=== PATIENT | female | born 1955 | race Caucasian/White ===

== ENCOUNTER 2018-02-20 08:04 | Day surgery (SDC) | payer OTHER, MEDICAID ==
[2018-02-20] MEDS ORDERED: LIDOCAINE 1% 2 ML INJ ID PRN (08:22)
[2018-02-20] MEDS ORDERED: LR 1,000 ML IV ONE (08:22)
--- NOTE | 2018-02-20 08:40 | PDANEPAE ---
ANE History of Present Illness Colonoscopy ANE Past Medical History - Cardiovascular History Hx Hypertension: No Hx Arrhythmias: No Hx Chest Pain: No Hx Coronary Artery / Peripheral Vascular Disease: No Hx CHF / Valvular Disease: No Hx Palpitations: No Cardiovascular History Comment: hyperlipidemia - Pulmonary History Hx COPD: No Hx Asthma/Reactive Airway Disease: Yes Hx Recent Upper Respiratory Infection: No Hx Oxygen in Use at Home: No Hx Sleep Apnea: Yes Sleep Apnea Screening Result - Last Documented: Positive Pulmonary History Comment: uses inhaler about 2x/month. hx of sleep apnea, dx about 10 years go, unable to tolerate CPAP - Neurologic History Hx Cerebrovascular Accident: No Hx Seizures: No Hx Dementia: No - Endocrine History Hx Diabetes: No Hypothyroid: No Hyperthyroid: No Obesity: severe - Renal History Hx Renal Disorders: No - Liver History Hx Hepatic Disorders: No - Neurological & Psychiatric Hx Hx Neurological and Psychiatric Disorders: Yes Neurological / Psychiatric History Comment: fibromyalgia, depression - Cancer History Hx Cancer: No - Congenital Disorder History Hx Congenital Disorders: No - GI History GERD: moderate Hx Gastrointestinal Disorders: Yes Gastrointestinal History Comment: reflux uses tums - Other Health History Other Health History: none - Chronic Pain History Chronic Pain: Yes (fibromyalgia,back pain, neck pain, on chronic opioids for 30 years) - Surgical History Prior Surgeries: back surgery 01/03 ANE Review of Systems Review of Systems: - Exercise capacity METS (RN): 3 METS ANE Patient History - Allergies Allergies/Adverse Reactions: sertraline [From Zoloft] Allergy (Verified 02/20/18 09:00) - Home Medications Home Medications: Aspirin 02/07/18 [Last Taken Unknown] Cholecalciferol (Vitamin D3) 02/07/18 [Last Taken Unknown] Desvenlafaxine Succinate 02/07/18 [Last Taken Unknown] Herbals/Supplements -Info Only 02/07/18 [Last Taken Unknown] MORPHINE SULFATE 02/07/18 [Last Taken Unknown] Percocet 10-325 mg Tablet 02/07/18 [Last Taken Unknown] Simvastatin 02/07/18 [Last Taken Unknown] Valium 5 MG (*) 02/07/18 [Last Taken Unknown] Vitamin B-12 02/07/18 [Last Taken Unknown] - Anes Hx Anes Hx: no prior problems - Smoking Hx Smoking Status: Former smoker (Stopped 30 years) - Family Anes Hx Family Anes Hx: none Family Hx Anesthesia Complications: none ANE Labs/Vital Signs - Vital Signs Height: 157.48 cm Weight: 108.862 kg ANE Physical Exam - Airway Neck exam: decreased ROM (Decreased extension) Mallampati Score: Class 2 Mouth exam: normal dental/mouth exam (full upper caps) - Pulmonary Pulmonary: clear to auscultation - Cardiovascular Cardiovascular: regular rate and rhythym - ASA Status ASA Status: III ANE Anesthesia Plan Anesthesia Plan: GA with mask
[2018-02-20] MEDS ORDERED: MIDAZOLAM 2 MG/2 ML VIAL IVP ONE (08:48)
[2018-02-20] MEDS ORDERED: fentaNYL 100 MCG/2 ML INJ ONE (09:02)
[2018-02-20] MEDS ORDERED: PROPOFOL 200 MG/20 ML VIAL ONE ×2 (09:02)
--- NOTE | 2018-02-20 09:12 | PDGENHP ---
History & Physical Chief Complaint: Fhx of colon cancer, difficulty to sedate with conscious sedation. History of Present Illness: Fhx of colon cancer her for screening colonoscopy. Hx of COPD/DAE. Pertinent Past, Social, Family History: None Relevant Physical Exam: AVSS. Lungs: Decreased BS. COR: RRR, NS1, S2. ABD: + BS, obese -HSM, NT. Neurol: Alert, OX3, No focal deficits. Cardiorespiratory Assessment: See above.
[2018-02-20] MEDS ORDERED: ONDANSETRON 4 MG/2 ML VIAL ONE ×2 (09:13→09:58)
[2018-02-20] MEDS ORDERED: MIDAZOLAM 2 MG/2 ML VIAL ONE (09:16)
[2018-02-20] MEDS ORDERED: ONDANSETRON 4 MG/2 ML VIAL IVP PRN (09:32)
[2018-02-20] MEDS ORDERED: fentaNYL 100 MCG/2 ML INJ IVP PRN (09:32)
[2018-02-20] MEDS ORDERED: ALBUTEROL 3 ML DEYVIAL IH PRN (09:32)
[2018-02-20] MEDS ORDERED: NALOXONE HCL 0.4 MG/ML INJ IVP PRN (09:32)
--- NOTE | 2018-02-20 09:59 | GIREPORT ---
[facility] - Endoscopy Department Patient Name: Hien Angeles Procedure Date: 02/20/2018 9:00 AM Patient Type: Outpatient Attending MD/ ER Physician: Benjamin Patterson MD Procedure: Colonoscopy Indications: Screening for colorectal malignant neoplasm, Family history of colon ca ncer in a first-degree relative Providers: Benjamin Patterson MD Referring MD: Jesica Bowser PA-C Medicines: General Anesthesia Complications: No immediate complications. Description of Procedure: After obtaining informed consent, the scope was passed under direct vis ion. Throughout the procedure, the patient's blood pressure, pulse, and oxyg en saturations were monitored continuously. The Colonoscope was introduced through the anus and advanced to the terminal ileum. The colonoscopy wa s performed without difficulty. The patient tolerated the procedure well. The quality of the bowel preparation was good. Findings: The terminal ileum appeared normal. The cecum, appendiceal orifice and ileocecal valve appeared normal. Two sessile polyps were found in the proximal ascending colon. The poly ps were 4 mm in size. These polyps were removed with a cold biopsy forceps . Resection and retrieval were complete. The rectum, sigmoid colon, descending colon and transverse colon appear ed normal. The perianal and digital rectal examinations were normal. Estimated Blood Loss: Estimated blood loss: none. Post Op Diagnosis: - The examined portion of the ileum was normal. - The cecum, appendiceal orifice and ileocecal valve are normal. - Two 4 mm polyps in the proximal ascending colon, removed with a cold biopsy forceps. Resected and retrieved. - The rectum, sigmoid colon, descending colon and transverse colon are normal. Recommendation: - Discharge patient to home (with escort). - Patient has a contact number available for emergencies. The signs and symptoms of potential delayed complications were discussed with the pat ient. Return to normal activities tomorrow. Written discharge instructions we re provided to the patient. - Advance diet as tolerated today. - Continue present medications. - Await pathology results. - Repeat colonoscopy in 5 years for surveillance. Attending Participation: I personally performed the entire procedure. Benjamin Patterson MD Benjamin Patterson MD 02/20/2018 9:59:34 AM This report has been signed electronicallyBenjamin Patterson MD Number of Addenda: 0 Note Initiated On: 02/20/2018 9:00 AM Total Procedure Duration Time 0 hours 26 minutes 47 seconds [email or web address]
--- NOTE | 2018-02-20 10:19 | POSTANESTH ---
Post Anesthetic Evaluation Cardiovascular Status: Normal, Stable Respiratory Status: Similar to Pre-op Cond. Level of Consciousness/Mental Status: Can Participate in Eval Pain Control: Adequate, Prn Tx Ordered Nausea/Vomiting Control: Adequate, Prn Tx Ordered Complications Possibly Related to Anesthesia: None Noted
[2018-02-20 10:52] VITALS: BP 127/76
== END 2018-02-20 12:15 | disposition home or self-care (01) ==
LOC: FSGY 08:04
PROVIDERS: ATTEND Internal Medicine Gastroenterology
PROC: 0DBK8ZX Excision of Ascending Colon, Via Natural or Artificial Opening Endoscopic, Diagnostic (ICD-10-PCS; principal; 2018-02-20 09:45)
DX: Z12.11 Encounter for screening for malignant neoplasm of colon (principal); D12.2 Benign neoplasm of ascending colon; J44.9 Chronic obstructive pulmonary disease, unspecified; G47.33 Obstructive sleep apnea (adult) (pediatric); E78.5 Hyperlipidemia, unspecified; M79.7 Fibromyalgia; F32.9 Major depressive disorder, single episode, unspecified; Z79.891 Long term (current) use of opiate analgesic; Z92.83 Personal history of failed moderate sedation; Z87.891 Personal history of nicotine dependence; Z80.0 Family history of malignant neoplasm of digestive organs
CPT/HCPCS: J2250; J2405; J2704; J3010